=== PATIENT | female | born 1960 | race Caucasian/White ===

== ENCOUNTER 2018-05-13 18:55 | Emergency (ER) | payer OTHER ==
[~2018-05-13 18:55] MED LIST: ATORVASTATIN CA40 MG PO; BACTRIM DS 8001 TAB PO; CARDIZEM CD 12120 MG PO; CHANTIX STARTING1 MG PO; EXALGO8 MG PO; FLUOXETINE40 MG PO; LEVOTHYROXINE0.15 M1 PO; OXYCODONE HCL30 MG PO; OXYCONTIN80 MG PO; ZOFRAN ODT4 MG PO
[2018-05-13 19:38] LABS: ABSOLUTE BASOPHIL COUNT 0.1 /CUMM (0.0-0.2); ABSOLUTE EOSINOPHIL COUNT 0.2 /CUMM (0.0-0.7); ABSOLUTE GRANULOCYTE CT 3.3 /CUMM (1.4-6.5); ABSOLUTE LYMPH COUNT 3.2 /CUMM (1.2-3.4); ABSOLUTE MONOCYTE COUNT 0.6 /CUMM (0.10-0.60); BASOPHIL % 0.7 % (0.0-2.0); EOSINOPHIL % 2.5 % (0-5); GRANULOCYTE % 45.1 % (42.2-75.2); HEMATOCRIT 41.2 % (37-47); MEAN CORPUSCULAR HGB 33.4 PG (27.0-31.0); MEAN CORPUSCULAR VOLUME 98.2 FL (81.0-99.0); MEAN PLATELET VOLUME 6.6 FL (7.4-10.4); PLATELET COUNT 345 /CUMM (130-400); RBC DISTRIBUTION WIDTH 13.2 % (11.5-14.5); RED BLOOD CELL CT 4.19 /CUMM (4.20-5.40); WHITE BLOOD CELL COUNT 7.3 /CUMM (4.8-10.8)
--- NOTE | 2018-05-13 20:03 | ED INFLUENZA/URI COMPLAINT ---
History of Present Illness General Chief Complaint: General Adult Stated Complaint: PT FEELS DIZZY,SOB Source: patient, old records Exam Limitations: no limitations Vital Signs & Intake/Output Vital Signs & Intake/Output Vital Signs Date Time Temp Pulse Resp B/P B/P Pulse O2 O2 Flow FiO2 Mean Ox Delivery Rate 05/13 2027 95 05/13 1906 98.0 82 20 142/99 99 Room Air Allergies Coded Allergies: Penicillins (Severe, UNKNOWN 05/13/18) dextrose (Severe, UNKNOWN 05/13/18) floxacillin (Severe, UNKNOWN 05/13/18) vancomycin (Severe, UNKNOWN 05/13/18) Reconcile Medications Atorvastatin Calcium (Lipitor) 40 MG TABLET 40 MG PO DAILY CHLOSTEROL ( Reported) Diltiazem Cd (Diltiazem ER) 120 MG CAP.ER.DEG 120 MG PO DAILY BP (Reported) FLUOXETINE HCL (Fluoxetine) 40 MG CAPSULE 40 MG PO DAILY DEPRESSION (Reported ) HYDROMORPHONE HCL (Exalgo) 8 MG TAB.ER.24H 8 MG PO PRN PAIN (Reported) Levothyroxine Sodium 0.15 MG TAB 0.15 MG PO DAILY THYROID (Reported) Ondansetron (Zofran Odt) 4 MG TAB.RAPDIS 1 TAB PO Q6-PRN PRN nausea/vomiting OXYCODONE HCL (Oxycodone HCl) 30 MG TABLET 1 TAB PO 4 TIMES/DAY PAIN ( Reported) Oxycodone Hydrochloride (Oxycontin) [address] 80 MG PO Q6 PAIN (Reported) Sulfamethoxazole/Trimethopri (Bactrim Ds 800 MG-160 MG) 1 TAB TAB 1 TAB PO BID INFECTION VARENICLINE TARTRATE (Chantix Starting Month Box) 0.5 MG (11)-1 MG (42) TAB.DS.PK 1 MG PO SMOKING (Reported) Triage Note: PER PT CO SOB SINCE YESTERDAY FELT LIKE I WAS GETTING A COLD BUT DIZZY AND CHILLS LAST 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 yes Onset: Morning Duration: hour(s):, constant, continues in ED Timing: recent history Severity: moderate Prior Episodes/Possible Cause: illness exposure Modifying Factors: Improves With: medication. Associated Symptoms: cough, fever/chills, headache, muscle aches, nasal congestion, nasal drainage, shortness of breath LMP (ages 10-50): post menopausal : No Patient currently breastfeeds: No HPI: The morning prior to admission patient complains of body aches chills anorexia nasal congestion cough shortness of breath headache and postnasal drip. She denies chest pain vomiting diarrhea abdominal pain dysuria rash bleeding. Past History Travel History Traveled to [place] past 21 day No Medical History Any Pertinent Medical History? see below for history Neurological: NONE EENT: NONE Cardiovascular: OK X 3 Respiratory: COPD Gastrointestinal: NONE Hepatic: NONE Renal: NONE Musculoskeletal: L4-L5 FUSION Psychiatric: NONE Endocrine: NONE Influenza Vaccine: 11/11/07 Tetanus Vaccine: 04/06/12 Surgical History Surgical History: non-contributory Psychosocial History Who do you live with Sister What is your primary language Thai Tobacco Use: Current Daily Use Daily Tobacco Use Amount/Type: =< 4 Cigarettes daily Family History Hx Contributory? No Review of Systems Review of Systems Constitutional: Reports: see HPI, chills, malaise. EENTM: Reports: see HPI, nasal congestion. Respiratory: Reports: see HPI, cough, short of breath, sputum production. Cardiovascular: Reports: no symptoms. GI: Reports: no symptoms. Genitourinary: Reports: no symptoms. Musculoskeletal: Reports: see HPI, muscle pain. Skin: Reports: no symptoms. Neurological/Psychological: Reports: no symptoms. Hematologic/Endocrine: Reports: no symptoms. Immunologic/Allergic: Reports: no symptoms. All Other Systems: Reviewed and Negative Physical Exam Physical Exam General Appearance: well developed/nourished, alert, awake, anxious, mild distress Head: atraumatic, normal appearance, tenderness (Sinus) Eyes: Bilateral: normal appearance, PERRL, EOMI. Ears, Nose, Throat: moist mucous membrane, nasal congestion, nasal drainage, pharyngeal erythema Neck: normal inspection, supple, full range of motion, trachea midline Respiratory: normal breath sounds, no respiratory distress, quiet respiration, decreased breath sounds Cardiovascular: regular rate/rhythm, normal peripheral pulses, norml femoral pulses equa Peripheral Pulses: 4+ carotid (R), 4+ carotid (L) Gastrointestinal: normal bowel sounds, soft, non-tender, no organomegaly Back: normal inspection, normal range of motion Extremities: normal inspection, normal capillary refill, normal range of motion, no edema Neurologic/Psych: no motor/sensory deficits, awake, alert, oriented x 3, normal gait, normal mood/affect, patch finisher II-XII nml as tested Reflexes: 2+: bicep (R), bicep (L). Skin: intact, normal color, warm/dry Lymphatic: no anterior cervical zaynab Core Measures Sepsis Present: No Sepsis Focused Exam Completed? No Progress Differential Diagnosis: influenza, otitis, pneumonia, pharyngitis, sinusitis Plan of Care: Orders Procedure Date/time Status Add-on Test (ER Only) 05/13 2001 Active URINALYSIS 05/13 2001 Complete TSH REFLEX 05/13 1925 Complete TOTAL TRIODOTHYROXINE 05/13 1925 Complete FREE T4 05/13 1925 Complete TROPONIN LEVEL 05/13 1920 Complete COMPREHENSIVE METABOLIC PANEL 05/13 1920 Complete CBC WITHOUT DIFFERENTIAL 05/13 1920 Complete EKG 05/13 1908 Active Laboratory Tests 05/13/182137: Urine Color STRAW, Urine Clarity CLEAR, Urine pH 6.5, Ur Specific Twilight <= 1.005, Urine Protein NEG, Urine Ketones NEG, Urine Nitrite NEG, Urine Bilirubin NEG, Urine Urobilinogen 0.2, Ur Leukocyte Esterase TRACE H, Ur Microscopic SEDIMENT EXAMINED, Urine RBC RARE, Urine WBC RARE, Ur Epithelial Cells RARE, Urine Hemoglobin TRACE-INTACT, Urine Glucose NEG 05/13/181924: Anion Gap 8, Estimated GFR 57 L, BUN/Creatinine Ratio 15.0, Glucose 91, Calcium 9.9, Total Bilirubin 0.4, AST 19, ALT 19, Alkaline Phosphatase 78, Troponin I < 0.01, Total Protein 7.2, Albumin 4.2, Globulin 3.0, Albumin/Globulin Ratio 1.4, Free T4 1.09, Total T3 1.04, TSH &T3 &Free T4 Intrp 9.740 H, CBC w Diff NO MAN DIFF REQ, RBC 4.19 L, MCV 98.2, MCH 33.4 H, MCHC 34.0, RDW 13.2, MPV 6.6 L, Gran % 45.1, Lymphocytes % 44.1, Monocytes % 7.6, Eosinophils % 2.5, Basophils % 0.7, Absolute Granulocytes 3.3, Absolute Lymphocytes 3.2, Absolute Monocytes 0.6 , Absolute Eosinophils 0.2, Absolute Basophils 0.1 Diagnostic Imaging: Viewed by Me: Radiology Read. Discussed w/RAD: Radiology Read. CXR Impression: no acute abnormality, no infiltrates Initial ED EKG: none Departure Departure Time of Disposition: 2243 Disposition: HOME OR SELF CARE Condition: Stable Clinical Impression Primary Impression: Acute viral syndrome Referrals: Unknown (PCP/Family) Departure Forms: Customer Survey General Discharge Information Prescriptions: Current Visit Scripts Albuterol Sulfate (Proair Hfa) 2 PUF INH Q4-6 PRN PRN cough #1 INHAL Ibuprofen 1 TAB PO Q6P PRN pain #50 TAB with food Ondansetron (Zofran Odt) 1 TAB SL TID PRN nausea #10 TAB
--- NOTE | 2018-05-13 20:29 | RADIOLOGY REPORT ---
EXAMINATION: XR CHEST CLINICAL INFORMATION: Congestion, cough, chest pain. COMPARISON: None TECHNIQUE: 2 views of the chest were obtained. FINDINGS: No significant abnormality is noted involving the heart, lungs, mediastinum, bony thorax or soft tissues. IMPRESSION: Unremarkable examination.
[2018-05-13] MEDS ORDERED: IBUPROFEN600 M1 PO (22:47)
[2018-05-13] MEDS ORDERED: ZOFRAN ODT4 M1 SL (22:47)
[2018-05-13] MEDS ORDERED: PROAIR HFA8.5 GM INH (22:47)
[2018-05-13 22:55] VITALS: BP 130/78
== END 2018-05-13 22:55 ==
LOC: ERH 18:55
PROVIDERS: Emergency Medicine
DX: B34.9 Viral infection, unspecified (principal)
CPT/HCPCS: 1263; 1395; 71046; 81001; 93005; 93010; 96361; 96374; J1885